=== PATIENT | female | born 1990 | race African-American/Black ===

== ENCOUNTER 2017-10-24 17:20 | Emergency (ER) | payer OTHER ==
[~2017-10-24] VITALS: Ht 152.4 cm; Wt 61.4 kg
[2017-10-24 17:25] VITALS: BP 165/107; PULSE 109; TEMP 99.4
[2017-10-24] MEDS ORDERED: NORCO 325 MG-51 TAB PO (18:36)
[2017-10-24] MEDS ORDERED: CRUTCHES MC (18:39)
== END 2017-10-24 18:55 | disposition home or self-care (01) ==
LOC: COL.ER 17:20
DX: S89.92XA Unspecified injury of left lower leg, initial encounter (principal); X50.0XXA Overexertion from strenuous movement or load, initial encounter; Y92.009 Unspecified place in unspecified non-institutional (private) residence as the place of occurrence of the external cause